=== PATIENT | female | born 1945 | race Two or more races ===

== ENCOUNTER 2017-06-25 13:37 | Outpatient (CLI) | payer OTHER ==
[~2017-06-25 13:37] MED LIST: AVALIDE 150-12.1 TA1; DIOVAN320 MG; LOPRESSOR25 MG; PROTONIX40 MG PO
== END 2017-06-25 17:00 | disposition home or self-care (01) ==
LOC: MRI 13:37
DX: E23.7 Disorder of pituitary gland, unspecified (principal)
CPT/HCPCS: 70551

== ENCOUNTER → 2017-06-26 06:47 | Outpatient (CLI) | payer OTHER | END | disposition home or self-care (01) | LOC: LAB 06:47 | DX: I10 Essential (primary) hypertension (principal); Z13.0 Encounter for screening for diseases of the blood and blood-forming organs and certain disorders involving the immune mechanism; Z13.21 Encounter for screening for nutritional disorder; Z12.11 Encounter for screening for malignant neoplasm of colon ==

== ENCOUNTER 2018-01-22 15:06 | Outpatient (CLI) | payer OTHER | END 2018-01-22 15:35 | disposition home or self-care (01) | LOC: MAMO-SONO 15:06 | DX: Z12.31 Encounter for screening mammogram for malignant neoplasm of breast (principal); Z87.898 Personal history of other specified conditions; Z12.39 Encounter for other screening for malignant neoplasm of breast ==

== ENCOUNTER → 2018-03-24 06:32 | Outpatient (CLI) | payer OTHER | END | disposition home or self-care (01) | LOC: LAB 06:32 | DX: Z13.1 Encounter for screening for diabetes mellitus (principal); E11.9 Type 2 diabetes mellitus without complications; R10.12 Left upper quadrant pain; E55.9 Vitamin D deficiency, unspecified; E78.2 Mixed hyperlipidemia; Z13.29 Encounter for screening for other suspected endocrine disorder ==

== ENCOUNTER → 2018-09-26 07:46 | Outpatient (CLI) | payer OTHER | END | disposition home or self-care (01) | LOC: LAB 07:46 | DX: E55.9 Vitamin D deficiency, unspecified (principal); E78.2 Mixed hyperlipidemia; I13.10 Hypertensive heart and chronic kidney disease without heart failure, with stage 1 through stage 4 chronic kidney disease, or unspecified chronic kidney disease; Z12.11 Encounter for screening for malignant neoplasm of colon; Z13.29 Encounter for screening for other suspected endocrine disorder ==

== ENCOUNTER → 2019-07-19 06:39 | Outpatient (CLI) | payer OTHER | END | disposition home or self-care (01) | LOC: LAB 06:39 | DX: E78.2 Mixed hyperlipidemia (principal); I13.10 Hypertensive heart and chronic kidney disease without heart failure, with stage 1 through stage 4 chronic kidney disease, or unspecified chronic kidney disease; J44.9 Chronic obstructive pulmonary disease, unspecified; N18.2 Chronic kidney disease, stage 2 (mild) ==

== ENCOUNTER 2019-07-19 13:04 | Outpatient (CLI) | payer OTHER | END 2019-07-19 14:39 | disposition home or self-care (01) | LOC: MAMO-SONO 13:04 | DX: Z12.39 Encounter for other screening for malignant neoplasm of breast (principal); Z12.31 Encounter for screening mammogram for malignant neoplasm of breast ==

== ENCOUNTER 2020-04-29 07:46 | Outpatient (CLI) | payer OTHER | END 2020-04-29 07:50 | disposition home or self-care (01) | LOC: LAB 07:46 | DX: E78.2 Mixed hyperlipidemia (principal); N18.2 Chronic kidney disease, stage 2 (mild) ==

== ENCOUNTER 2020-07-17 10:06 | Outpatient (CLI) | payer OTHER | END 2020-07-17 10:12 | disposition home or self-care (01) | LOC: RAD 10:06 | PROVIDERS: ATTEND General Practice | DX: R05 Cough (principal) ==

== ENCOUNTER → 2021-02-14 | Emergency (ER) | payer OTHER ==
[~2021-02-14] VITALS: Ht 162.6 cm; Wt 95.3 kg
[~2021-02-14] MED LIST changes: +ATACAND4 MG PO
== END | disposition home or self-care (01) ==
LOC: ER 11:55
DX: K80.20 Calculus of gallbladder without cholecystitis without obstruction (principal); R10.11 Right upper quadrant pain; Z11.52 Encounter for screening for COVID-19

== ENCOUNTER 2021-07-21 07:11 | Outpatient (CLI) | payer OTHER | END 2021-07-21 07:16 | disposition home or self-care (01) | LOC: LAB 07:11 | PROVIDERS: ATTEND General Practice | DX: E16.2 Hypoglycemia, unspecified (principal); D50.9 Iron deficiency anemia, unspecified; E78.5 Hyperlipidemia, unspecified; Z12.11 Encounter for screening for malignant neoplasm of colon; E03.9 Hypothyroidism, unspecified; R30.0 Dysuria ==

== ENCOUNTER 2022-06-22 07:05 | Outpatient (CLI) | payer OTHER ==
[~2022-06-22 07:05] MED LIST changes: +PROAIR HFA8.5 GM IH; +TUSNEL LIQUID178 ML PO; +ZITHROMAX500 MG PO
== END 2022-06-22 07:06 | disposition home or self-care (01) ==
LOC: LAB 07:05
DX: E03.9 Hypothyroidism, unspecified (principal); E78.5 Hyperlipidemia, unspecified; D50.9 Iron deficiency anemia, unspecified; E16.2 Hypoglycemia, unspecified; Z12.11 Encounter for screening for malignant neoplasm of colon; R30.0 Dysuria

== ENCOUNTER 2023-06-19 16:00 | Outpatient (CLI) | payer OTHER ==
[2023-06-19 17:14] LABS: URINE APPEARANCE Clear; URINE BILIRRUBIN Negative (NEGATIVE); URINE BLOOD Negative; URINE COLOR Yellow; URINE GLUCOSE Negative (NEGATIVE); URINE LEUKOCYTE Trace; URINE NITRATE Negative; URINE PROTEIN Negative (NEGATIVE)
[2023-06-19 17:15] LABS: HEMATOCRIT 43.5 % (36.0-45.00); HEMOGLOBIN 14.4 g/dL (12.0-15.00); MEAN CELL VOLUME 90.1 fL (80.00-100.00); MEAN CORPUSCULAR HEMOGLOBIN 29.8 pg (27.00-32.0); PLATELET COUNT 297 K/uL (150-450); RED BLOOD COUNT 4.82 M/uL (4.00-6.00); RED CELL DISTRIBUTION WIDTH 14.4 % (11.5-14.5)
[2023-06-19 17:18] LABS: URINE BACTERIA 255.7 uL (0.0-1933); URINE EPITHELIAL CELLS 8.8 uL (0.0-38.8); URINE RBC 11.3 uL (0.0-20.8); URINE WBC 14.2 uL (0.0-23.2)
[2023-06-19 18:00] LABS: ALBUMIN 3.2 gm/dL (3.4-5.0); BILIRUBIN TOTAL 0.4 mg/dL (0.3-1.2); CALCIUM 9.4 mg/dL (8.5-10.1); CHOL HDL RATIO 3.9 (0-5.0); CREATININE SERUM 0.64 mg/dL (0.55-1.02); GFR 90.46; GLOBULINA 3.9 G/DL (2.4-3.5); POTASSIUM 3.64 mEq/L (3.5-5.1); TOTAL PROTEIN 7.1 gm/dL (6.4-8.2)
[2023-06-19 18:05] LABS: TSH 0.015 uIU/mL (0.358-3.74)
== END 2023-06-19 23:00 | disposition home or self-care (01) ==
LOC: LAB 16:00
DX: Z12.11 Encounter for screening for malignant neoplasm of colon (principal); E16.2 Hypoglycemia, unspecified; R30.0 Dysuria; E03.9 Hypothyroidism, unspecified; D50.9 Iron deficiency anemia, unspecified; E78.5 Hyperlipidemia, unspecified

== ENCOUNTER → 2023-06-20 13:23 | Outpatient (CLI) | payer OTHER ==
[2023-06-20 14:46] LABS: ob POSITIVE (NEGATIVE)
== END | disposition home or self-care (01) ==
LOC: LAB 13:23
DX: Z12.11 Encounter for screening for malignant neoplasm of colon (principal); E16.2 Hypoglycemia, unspecified; R30.0 Dysuria; E03.9 Hypothyroidism, unspecified; D50.9 Iron deficiency anemia, unspecified; E78.5 Hyperlipidemia, unspecified

== ENCOUNTER → 2023-06-23 | Outpatient (CLI) | payer OTHER | END | disposition home or self-care (01) | LOC: MRI 06-20 13:43 | PROVIDERS: ATTEND General Practice | DX: Z86.73 Personal history of transient ischemic attack (TIA), and cerebral infarction without residual deficits (principal) | CPT/HCPCS: 70551 ==

== ENCOUNTER 2024-08-03 08:07 | Outpatient (CLI) | payer OTHER ==
[2024-08-03 08:45] LABS: HEMATOCRIT 41.8 % (36.0-45.00); MEAN CORPUSCULAR HEMOGLOBIN 29.5 pg (27.00-32.0); MEAN CORPUSCULAR HGB CONC 33.5 g/dl (32.0-36.0); PLATELET COUNT 309 K/uL (150-450); RED BLOOD COUNT 4.75 M/uL (4.00-6.00); RED CELL DISTRIBUTION WIDTH 15.5 % (11.5-14.5)
[2024-08-03 09:23] LABS: URINE BILIRRUBIN SMALL (NEGATIVE); URINE BLOOD NEGATIVE; URINE GLUCOSE NEGATIVE (NEGATIVE); URINE KETONE 15 (NEGATIVE); URINE LEUKOCYTE NEGATIVE; URINE NITRATE NEGATIVE; URINE PROTEIN NEGATIVE (NEGATIVE); URINE UROBILINOGEN 0.2 E.U./dl
[2024-08-03 09:38] LABS: URINE APPEARANCE SL CLOUDY; URINE COLOR YELLOW
[2024-08-03 09:45] LABS: URINE RBC 535.3 uL (0.0-20.8); URINE WBC 64.9 uL (0.0-23.2)
[2024-08-03 09:46] LABS: URINE BACTERIA > 9821.5 uL (0.0-1933); URINE EPITHELIAL CELLS > 201.7 uL (0.0-38.8)
[2024-08-03 09:52] LABS: ob NEGATIVE (NEGATIVE)
[2024-08-03 09:53] LABS: URINE CRYSTALS FEW /HPF; URINE YEAST MODERATE /hpf
[2024-08-03 10:24] LABS: ALBUMIN 3.2 gm/dL (3.4-5.0); BILIRUBIN TOTAL 0.95 mg/dL (0.3-1.2); CALCIUM 9.4 mg/dL (8.5-10.1); CHOL HDL RATIO 2.7 (0-5.0); CREATININE SERUM 0.68 mg/dL (0.55-1.02); GFR 84.12; GLOBULINA 3.8 G/DL (2.4-3.5); POTASSIUM 3.99 mEq/L (3.5-5.1)
[2024-08-03 10:33] LABS: TSH 0.01 uIU/mL (0.358-3.74)
== END 2024-08-03 08:08 | disposition home or self-care (01) ==
LOC: LAB 08:07
PROVIDERS: ATTEND General Practice
DX: R30.0 Dysuria (principal); E78.5 Hyperlipidemia, unspecified; Z12.11 Encounter for screening for malignant neoplasm of colon; E03.9 Hypothyroidism, unspecified; E16.2 Hypoglycemia, unspecified; D50.9 Iron deficiency anemia, unspecified

== ENCOUNTER → 2024-08-30 09:50 | Outpatient (CLI) | payer OTHER ==
[2024-08-31 09:06] LABS: tpo 41 IU/mL (0-34)
== END | disposition home or self-care (01) ==
LOC: LAB 09:50
PROVIDERS: ATTEND General Practice
DX: R94.6 Abnormal results of thyroid function studies (principal)

== ENCOUNTER 2024-08-30 11:00 | Outpatient (CLI) | payer OTHER | END 2024-08-30 11:04 | disposition home or self-care (01) | LOC: SONOGRAMA 11:00 | PROVIDERS: ATTEND General Practice | DX: R94.6 Abnormal results of thyroid function studies (principal) ==

== ENCOUNTER 2024-11-17 06:59 | Outpatient (CLI) | payer OTHER ==
[2024-11-17 07:58] LABS: BASO % 0.1 % (0.1-1.2); EOS # 0.61 (0.04-0.54); EOS % 8.8 % (0.7-7.0); HEMATOCRIT 42.5 % (34.1-44.9); HEMOGLOBIN 13.8 g/dL (11.2-15.7); LYMPH # 1.46 (1.18-3.74); LYMPH % 21.1 % (19.3-53.1); MEAN CORPUSCULAR HEMOGLOBIN 28.6 pg (25.6-32.2); MONO # 0.45 (0.24-0.82); MONO % 6.5 % (4.7-12.5); NEUT # 4.37 (1.56-6.13); NEUT % 63.2 % (34.0-71.1); PLATELET COUNT 326 K/uL (163-369); RED BLOOD COUNT 4.82 M/uL (3.93-5.22); RED CELL DISTRIBUTION WIDTH 16.1 % (11.6-14.4)
[2024-11-17 08:00] LABS: PH,URINE 5.5 (5.0-8.0); URINE APPEARANCE Clear; URINE BILIRRUBIN Negative (NEGATIVE); URINE BLOOD Negative; URINE COLOR Yellow; URINE GLUCOSE Negative (NEGATIVE); URINE KETONE Trace (NEGATIVE); URINE LEUKOCYTE Trace; URINE NITRATE Negative; URINE PROTEIN Trace (NEGATIVE)
[2024-11-17 08:04] LABS: URINE CAST 1.62 uL (0.0-1.40); URINE EPITHELIAL CELLS 67.2 uL (0.0-38.8); URINE RBC 3.5 uL (0.0-20.8); URINE WBC 23.8 uL (0.0-23.2)
[2024-11-17 08:30] LABS: URINE MUCUS MODERATE
[2024-11-17 08:59] LABS: ALBUMIN 3.3 gm/dL (3.4-5.0); BILIRUBIN TOTAL 1.08 mg/dL (0.3-1.2); CALCIUM 9.8 mg/dL (8.5-10.1); CHOL HDL RATIO 2.9 (0-5.0); CREATININE SERUM 0.68 mg/dL (0.55-1.02); GFR 83.9; GLOBULINA 3.7 G/DL (2.4-3.5); POTASSIUM 3.95 mEq/L (3.5-5.1); T4 FREE 1.25 NG/ML (0.76-1.46)
[2024-11-17 09:01] LABS: TSH 0.018 uIU/mL (0.358-3.74)
== END 2024-11-17 07:02 | disposition home or self-care (01) ==
LOC: LAB 06:59
PROVIDERS: ATTEND Internal Medicine
DX: E11.9 Type 2 diabetes mellitus without complications (principal); N18.31 Chronic kidney disease, stage 3a; E55.9 Vitamin D deficiency, unspecified; Z12.11 Encounter for screening for malignant neoplasm of colon; E78.2 Mixed hyperlipidemia; E03.8 Other specified hypothyroidism

== ENCOUNTER → 2024-11-19 08:57 | Outpatient (CLI) | payer OTHER ==
[2024-11-19 09:28] LABS: ob NEGATIVE (NEGATIVE)
== END | disposition home or self-care (01) ==
LOC: LAB 08:57
PROVIDERS: ATTEND Internal Medicine
DX: E11.9 Type 2 diabetes mellitus without complications (principal); N18.31 Chronic kidney disease, stage 3a; E55.9 Vitamin D deficiency, unspecified; Z12.11 Encounter for screening for malignant neoplasm of colon; E78.2 Mixed hyperlipidemia; E03.8 Other specified hypothyroidism

== ENCOUNTER 2024-11-19 09:36 | Outpatient (CLI) | payer OTHER | END 2024-11-19 09:48 | disposition home or self-care (01) | LOC: RAD 09:36 | PROVIDERS: ATTEND Internal Medicine | DX: I70.0 Atherosclerosis of aorta (principal) ==

== ENCOUNTER 2024-12-08 11:35 | Outpatient (CLI) | payer OTHER | END 2024-12-08 11:46 | disposition home or self-care (01) | LOC: TOM 11:35 | PROVIDERS: ATTEND Internal Medicine | DX: E04.9 Nontoxic goiter, unspecified (principal); Z12.31 Encounter for screening mammogram for malignant neoplasm of breast; N63.11 Unspecified lump in the right breast, upper outer quadrant; N63.21 Unspecified lump in the left breast, upper outer quadrant; R42 Dizziness and giddiness ==

== ENCOUNTER → 2024-12-28 08:34 | Outpatient (CLI) | payer OTHER | END | disposition home or self-care (01) | LOC: NUCLEAR 08:34 | DX: M81.0 Age-related osteoporosis without current pathological fracture (principal) ==